=== PATIENT | female | born 1945 | race Caucasian/White ===

== ENCOUNTER 2017-01-03 11:30 | Inpatient (IN) | payer MEDICARE ==
--- NOTE | ~2017-01-03 | HP ---
History And Physical [facility] [address] [place]. [address] NAME: MARY CARMEN MARTINS : [birth year] STATUS : ADM IN [facility]#: [id number] AGE: 71 ADM/REG DATE : 01/03/17 MR#: [id number] REPORT SERV DATE: 01/03/17 DICTATED BY: BENJAMIN ALVARES DATE: 01/03/17 REPORT STATUS : Draft TRANSCRIBED BY: MODL DATE: 01/03/17 DATE OF ADMISSION: 01/03/2017 CHIEF COMPLAINT: Sent by office for labs. HISTORY OF PRESENT ILLNESS: Ms. Martins is a 71-year-old white female who has a history of advanced chronic kidney disease. She apparently was on dialysis from 2011 until approximately 2013 through a right upper arm AV graft. Because of infection, her graft has been removed, and she recovered renal function and has been off dialysis for the last four to five years. Reviewing available records shows that her creatinine was 2.5 in 07/2015 and 3.2 in 06/2016. Creatinine was 3.1 in 07/2016. However, when she came to the office on 12/19, creatinine was up to 6.2. She was sent back to the office today for followup, was found to have creatinine of 9.3 with a GFR 4 mL/minute. Her urine protein creatinine was 26.01, phosphorus 8.6, albumin 2.9. Because of recent uremic symptoms, she was sent to the [facility] Emergency Room for admission and initiation of chronic dialysis. PAST MEDICAL HISTORY: 1. CKD, stage 5, as per HPI. Previously dialysis dependent. 2. Anemia. 3. Nephrotic range proteinuria. 4. Hypertension. 5. Bilateral asymptomatic carotid artery stenosis. 6. Left renal artery stent, 06/2012. 7. 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 MEDICATIONS ON ADMISSION: Amlodipine 10 mg q.a.m., 5 mg q.p.m., Coreg 12.5 mg b.i.d., Colace, iron, losartan 50 mg b.i.d., sodium bicarb 650 mg b.i.d. FAMILY HISTORY: No ESRD. SOCIAL HISTORY: Chronic half pack per day smoker. She is recently with her passing away on 11/27. She is retired and lives in [place], [place]. REVIEW OF SYSTEMS: Significant for recent nausea, loss of appetite, loss of taste for food, weight loss, fatigue, and edema. PHYSICAL EXAMINATION: VITAL SIGNS: Temperature 97.9, pulse 71, respirations 20, blood pressure 166/82, 98% saturation on room air. GENERAL: She is a chronically ill-appearing, white female. Awake, alert, oriented, and cooperative with the exam. She is in no distress sitting in her hospital bed accompanied by her supportive daughter. HEENT: Sclerae without icterus. Conjunctivae not injected. Oropharynx is clear. History And Physical [address] [address] NAME: MARY CARMEN MARTINS : [birth year] STATUS : ADM IN [facility]#: [id number] AGE: 71 ADM/REG DATE : 01/03/17 MR#: [id number] REPORT SERV DATE: 01/03/17 DICTATED BY: BENJAMIN ALVARES DATE: 01/03/17 REPORT STATUS : Draft TRANSCRIBED BY: JOSE RAUL DATE: 01/03/17 LUNGS: She has bilateral rhonchi without dyspnea or tachypnea on room air. HEART: Regular rate and rhythm. No rub. ABDOMEN: Soft, nontender, nondistended. Bowel sounds present throughout. EXTREMITIES: 2+ pitting bilateral lower extremity and upper extremity edema. Right upper extremity has a bruise, old right upper arm graft has been removed. SKIN: No rash. MUSCULOSKELETAL: No active tenosynovitis or gout. PSYCH: Mood and affect are appropriate. LABORATORY DATA: Sodium 140, potassium 4.1, bicarb 18, anion gap 13, BUN 66, creatinine 9.7, GFR less than 5 mL/minute, calcium 7.7, albumin 2.0, phosphorus 8.6. White count 13,900, hemoglobin 10.7, platelets 264,000. INR 1.2. Chest x-ray, no active infiltrates or disease. ASSESSMENT/PLAN: Ms. Martins has chronic kidney disease that is now advanced to end-stage renal disease associated with uremic symptoms, anemia, nephrotic range proteinuria with hypoalbuminemia and edema, hyperphosphatemia, and acidosis. Admit to the Renal Service. Consult Dr. Harvey of Vascular for PermCath placement. We will defer whether or not to attempt a new permanent dialysis access on the left arm? Hold ARB. Case management to arrange outpatient dialysis. Hopefully can start dialysis in the hospital tomorrow and discharge early next week? Family updated, agree with treatment plans. NC/MODL Benjamin Alvares M.D. / [id number] CC: Pedro Lindsay M.D.
--- NOTE | ~2017-01-03 | DS ---
Discharge Summary [facility] [address] [place]. [address] NAME: MARY CARMEN YOST : 49 STATUS : DIS IN PAT#: [id number] AGE: 71 ADM/REG DATE : 01/03/17 MR#: [id number] REPORT SERV DATE: 01/17/17 DICTATED BY: LUC ALVARES DATE: 01/17/17 REPORT STATUS : Draft TRANSCRIBED BY: JOSE RAUL DATE: 01/17/17 Data Collection from hospitalization DISCHARGE DIAGNOSES: 1. Uremia. 2. New end-stage renal disease. 3. Nephrotic syndrome. 4. Hypertension. 5. Left renal artery stenosis-stent. 6. Anemia. 7. Tobacco use. CONSULTATIONS: None. PROCEDURES: Ultrasound and fluoroscopic-guided placement of tunneled hemodialysis catheter via the right internal jugular access 01/04/2017. DISCHARGE MEDICATIONS: Norvasc 10 mg daily, Tums 1000 mg with meals, Coreg 25 mg twice a day, docusate sodium 100 mg daily, ferrous sulfate 325 mg twice a day, Cozaar 50 mg twice a day, Habitrol 21 mg topically daily, Colon Health one capsule daily. CONDITION AT DISCHARGE: Stable. DISPOSITION: The patient was discharged home on a renal diet with activities as instructed. She would follow up for dialysis at [facility] 01/09/2017. HOSPITAL COURSE: This is a 71-year-old female who has a history of advanced chronic kidney disease. She apparently was on dialysis from 2011 until approximately 2013 via a right upper arm AV graft. Because of infection, her graft had been removed and she recovered renal function. She has been off dialysis over the last four to five years, creatinine level in 2014 was 2.5 and in 2015, it was 3.2. Creatinine was 3.1 in 07/2016. When she presented to the office on 12/19/2016, her creatinine level was 6.2. She was sent back to the office on the day of this admission, and creatinine was found to be 9.3. Urine protein and creatinine was 26.01 because of recent uremic symptoms, she was sent to the [facility] Emergency Room to be admitted and for initiation of chronic dialysis. She was admitted to the hospital at this time for further evaluation and treatment. Upon admission, INR level was 1.2. White count was 13,900. ARB was held. We hoped we could start dialysis the following day. The following day, she had pain control, she had no complaints of abdominal pain, she did have some edema. White count was 13.9. On 01/05/2017, hemodialysis therapy was again performed. She had no dyspnea. ARB was restarted. Supportive care continued. On 01/06/2017, she was alert and cooperative. She had undergone ultrasound and fluoroscopic guided placement of a tunneled hemodialysis catheter via the right internal jugular access on 01/04/2017. She continued to do well and had no complaints. She had no focal deficits. She had no edema. Hemodialysis therapy continued. Discharge planning was performed. Discharge Summary [place] [id number] [place]. [address] NAME: MARY CARMEN YOST : [birth year] STATUS : DIS IN PAT#: [id number] AGE: 71 ADM/REG DATE : 01/03/17 MR#: [id number] REPORT SERV DATE: 01/17/17 DICTATED BY: LUC ALVARES DATE: 01/17/17 REPORT STATUS : Draft TRANSCRIBED BY: JOSE RAUL DATE: 01/17/17 On 01/08/2017, there was no nausea, vomiting, or diarrhea. She was tolerating hemodialysis well. Discharge instructions were given. Plans were going to be made to have a fistula placed as an outpatient at a later date. Due to her improved and stable condition, she was discharged home with the above-stated instructions. Information collected by: Erlinda Chris I submit the above information as my discharge summary. STEFAN/JOSE RAUL Luc Alvares M.D. / [id number] CC: Pedro Lindsay M.D.
[2017-01-03 10:46] LABS: BASOPHILS 0.2 %; BASOPHILS ABSOLUTE 0.03 10/3/uL (0.0-0.16); EOSINOPHILS 7.5 %; EOSINOPHILS ABSOLUTE 1.05 10/3/uL (0.0-0.53); HEMATOCRIT 30.8 % (36.0-48.0); HEMOGLOBIN 10.7 g/dL (12.0-16.0); IMMATURE GRANULOCYTES 0.2 %; IMMATURE GRANULOCYTES ABSOLUTE 0.03 10/3/uL (0.0-0.11); LYMPHOCYTES 15.4 %; LYMPHOCYTES ABSOLUTE 2.14 10/3/uL (0.67-4.30); MANUAL DIFF NO %; MEAN CORPUS HGB CONC 34.7 g/dL (32.0-36.0); MEAN CORPUSCULAR HEMOGLOB 30.3 pg (26.0-34.0); MEAN CORPUSCULAR VOLUME 87.3 fL (80-100); MEAN PLATELET VOLUME 9.7 fL (9.2-13.0); MONOCYTES 6.5 %; NEUTROPHILS 70.2 %; NEUTROPHILS ABSOLUTE 9.76 10/3/uL (2.02-8.40); PLATELET COUNT 264 10/3/uL (150-400); RBC DISTRIBUTION WIDTH 15.7 % (12.0-16.0); RED CELL COUNT 3.53 10/6/uL (4.0-5.6); WHITE BLOOD CELLS 13.9 10/3/uL (4.5-10.5)
[2017-01-03 10:54] LABS: INTERNATIONAL NORMAL RATI 1.2 UNITS (-); PROTIME (NOT ORD) 14.6 SEC (12.0-14.5)
[2017-01-03 11:01] LABS: A/G RATIO 0.4 (0.7-1.9); ALKALINE PHOSPHATASE 117 U/L (45-117); BUN (BLOOD UREA NITROGEN) 66 MG/DL (6-23); CALCIUM, SERUM 7.7 MG/DL (8.5-10.4); CHLORIDE, SERUM 109 MMOL/L (96-112); CO2 (CARBON DIOXIDE) 18 MMOL/L (24-34); CREATININE 9.69 MG/DL (0.55-1.02); GFR AFRICAN AMERICAN 4 ML/MIN (>=60); GFR NON AFRICAN AMERICAN 4 ML/MIN (>=60); GLOBULIN 4.8 G/DL (2.5-4.1); GLUCOSE, SERUM 88 MG/DL (60-99); POTASSIUM, SERUM 4.1 MMOL/L (3.5-5.3); SGOT(AST) 10 U/L (5-40); SGPT(ALT) 11 U/L (5-65); SODIUM, SERUM 140 MMOL/L (135-148); TOTAL BILIRUBIN 0.2 MG/DL (0-1.2); TOTAL PROTEIN 6.8 G/DL (6.0-8.5)
[2017-01-03] MEDS ORDERED: NORV10 PO (11:58)
[2017-01-03] MEDS ORDERED: NORV5 PO (11:58)
[2017-01-03] MEDS ORDERED: SODBICAR10 PO (11:59)
[2017-01-03] MEDS ORDERED: D.O.S.100 MG PO (11:59)
[2017-01-03] MEDS ORDERED: COZ50 PO (11:59)
[2017-01-03] MEDS ORDERED: COREG12 PO (11:59)
[2017-01-03] MEDS ORDERED: FERROUS SULF325 M1 PO (11:59)
[2017-01-03] MEDS ORDERED: COLON HEALTH PO (12:00)
[2017-01-04 10:00] LABS: HEPATITIS C ANTIBODY NON-REACTIVE (NON-REACT)
[2017-01-04 10:01] LABS: HEPATITIS B CORE AB IGM NON-REACTIVE (NON-REAC); HIV COMBO NON-REACTIVE (NON REAC)
[2017-01-04 10:02] LABS: HEP A ANTIBODY IGM NON-REACTIVE (NON-REACT)
[2017-01-04 10:14] LABS: HEPATITIS B SURFACE ANTIGEN NON-REACTIVE (NON-REACT)
[2017-01-04 14:50] LABS: BASOPHILS 0.2 %; BASOPHILS ABSOLUTE 0.02 10/3/uL (0.0-0.16); EOSINOPHILS 8.8 %; EOSINOPHILS ABSOLUTE 0.75 10/3/uL (0.0-0.53); IMMATURE GRANULOCYTES 0.2 %; IMMATURE GRANULOCYTES ABSOLUTE 0.02 10/3/uL (0.0-0.11); LYMPHOCYTES 26.6 %; LYMPHOCYTES ABSOLUTE 2.27 10/3/uL (0.67-4.30); MEAN CORPUS HGB CONC 35.2 g/dL (32.0-36.0); MEAN CORPUSCULAR HEMOGLOB 30.6 pg (26.0-34.0); MEAN CORPUSCULAR VOLUME 87.1 fL (80-100); MEAN PLATELET VOLUME 9.7 fL (9.2-13.0); MONOCYTES 7.7 %; MONOCYTES ABSOLUTE 0.66 10/3/uL (0.21-1.20); NEUTROPHILS 56.5 %; NEUTROPHILS ABSOLUTE 4.81 10/3/uL (2.02-8.40); PLATELET COUNT 203 10/3/uL (150-400); RBC DISTRIBUTION WIDTH 15.5 % (12.0-16.0); WHITE BLOOD CELLS 8.5 10/3/uL (4.5-10.5)
[2017-01-04 14:51] LABS: HEMATOCRIT 23.6 % (36.0-48.0); HEMOGLOBIN 8.3 g/dL (12.0-16.0); MANUAL DIFF NO %; RED CELL COUNT 2.71 10/6/uL (4.0-5.6)
[2017-01-04 15:04] LABS: BUN (BLOOD UREA NITROGEN) 69 MG/DL (6-23); CALCIUM, SERUM 7.6 MG/DL (8.5-10.4); CHLORIDE, SERUM 112 MMOL/L (96-112); CO2 (CARBON DIOXIDE) 18 MMOL/L (24-34); GFR AFRICAN AMERICAN 4 ML/MIN (>=60); GFR NON AFRICAN AMERICAN 4 ML/MIN (>=60); POTASSIUM, SERUM 3.6 MMOL/L (3.5-5.3); SODIUM, SERUM 143 MMOL/L (135-148)
[2017-01-04 15:08] LABS: ALBUMIN 1.4 G/DL (3.5-5.0); GLUCOSE, SERUM 158 MG/DL (60-99); PHOSPHORUS, SERUM 7.9 MG/DL (2.5-4.5)
[2017-01-05 09:03] LABS: BASOPHILS 0.3 %; BASOPHILS ABSOLUTE 0.03 10/3/uL (0.0-0.16); EOSINOPHILS 7.9 %; EOSINOPHILS ABSOLUTE 0.77 10/3/uL (0.0-0.53); HEMATOCRIT 25.4 % (36.0-48.0); HEMOGLOBIN 8.9 g/dL (12.0-16.0); IMMATURE GRANULOCYTES 0.1 %; IMMATURE GRANULOCYTES ABSOLUTE 0.01 10/3/uL (0.0-0.11); LYMPHOCYTES 21.9 %; LYMPHOCYTES ABSOLUTE 2.12 10/3/uL (0.67-4.30); MEAN CORPUSCULAR HEMOGLOB 30.5 pg (26.0-34.0); MEAN PLATELET VOLUME 9.4 fL (9.2-13.0); MONOCYTES 8.7 %; MONOCYTES ABSOLUTE 0.84 10/3/uL (0.21-1.20); NEUTROPHILS 61.1 %; NEUTROPHILS ABSOLUTE 5.92 10/3/uL (2.02-8.40); PLATELET COUNT 209 10/3/uL (150-400); RBC DISTRIBUTION WIDTH 15.3 % (12.0-16.0); RED CELL COUNT 2.92 10/6/uL (4.0-5.6); WHITE BLOOD CELLS 9.7 10/3/uL (4.5-10.5)
[2017-01-05 09:04] LABS: MANUAL DIFF NO %
[2017-01-05 09:21] LABS: CALCIUM, SERUM 7.6 MG/DL (8.5-10.4); CHLORIDE, SERUM 110 MMOL/L (96-112); POTASSIUM, SERUM 3.7 MMOL/L (3.5-5.3); SODIUM, SERUM 140 MMOL/L (135-148)
[2017-01-05 09:23] LABS: BUN (BLOOD UREA NITROGEN) 46 MG/DL (6-23); CO2 (CARBON DIOXIDE) 24 MMOL/L (24-34); CREATININE 7.17 MG/DL (0.55-1.02); GFR AFRICAN AMERICAN 6 ML/MIN (>=60); GFR NON AFRICAN AMERICAN 5 ML/MIN (>=60); GLUCOSE, SERUM 90 MG/DL (60-99); PHOSPHORUS, SERUM 6.5 MG/DL (2.5-4.5)
[2017-01-05 09:24] LABS: ALBUMIN 1.8 G/DL (3.5-5.0)
[2017-01-06 07:38] LABS: ALBUMIN 2.2 G/DL (3.5-5.0); BUN (BLOOD UREA NITROGEN) 28 MG/DL (6-23); CHLORIDE, SERUM 105 MMOL/L (96-112); CO2 (CARBON DIOXIDE) 25 MMOL/L (24-34); CREATININE 5.62 MG/DL (0.55-1.02); GFR AFRICAN AMERICAN 8 ML/MIN (>=60); GFR NON AFRICAN AMERICAN 7 ML/MIN (>=60); GLUCOSE, SERUM 86 MG/DL (60-99); PHOSPHORUS, SERUM 4.5 MG/DL (2.5-4.5); POTASSIUM, SERUM 3.7 MMOL/L (3.5-5.3); SODIUM, SERUM 137 MMOL/L (135-148)
[2017-01-07 14:06] LABS: BASOPHILS 0.3 %; BASOPHILS ABSOLUTE 0.03 10/3/uL (0.0-0.16); EOSINOPHILS 8.2 %; EOSINOPHILS ABSOLUTE 0.94 10/3/uL (0.0-0.53); HEMATOCRIT 24.9 % (36.0-48.0); HEMOGLOBIN 8.5 g/dL (12.0-16.0); IMMATURE GRANULOCYTES 0.3 %; IMMATURE GRANULOCYTES ABSOLUTE 0.03 10/3/uL (0.0-0.11); LYMPHOCYTES 24.8 %; LYMPHOCYTES ABSOLUTE 2.84 10/3/uL (0.67-4.30); MEAN CORPUS HGB CONC 34.1 g/dL (32.0-36.0); MONOCYTES 7.9 %; MONOCYTES ABSOLUTE 0.91 10/3/uL (0.21-1.20); NEUTROPHILS 58.5 %; NEUTROPHILS ABSOLUTE 6.71 10/3/uL (2.02-8.40); PLATELET COUNT 207 10/3/uL (150-400); RBC DISTRIBUTION WIDTH 15.1 % (12.0-16.0); RED CELL COUNT 2.83 10/6/uL (4.0-5.6); WHITE BLOOD CELLS 11.5 10/3/uL (4.5-10.5)
[2017-01-07 14:07] LABS: MANUAL DIFF NO %
[2017-01-07 14:30] LABS: BUN (BLOOD UREA NITROGEN) 45 MG/DL (6-23); CALCIUM, SERUM 8.2 MG/DL (8.5-10.4); CHLORIDE, SERUM 103 MMOL/L (96-112); CO2 (CARBON DIOXIDE) 25 MMOL/L (24-34); CREATININE 7.49 MG/DL (0.55-1.02); GFR AFRICAN AMERICAN 6 ML/MIN (>=60); GFR NON AFRICAN AMERICAN 5 ML/MIN (>=60); GLUCOSE, SERUM 122 MG/DL (60-99); PHOSPHORUS, SERUM 5.6 MG/DL (2.5-4.5); POTASSIUM, SERUM 3.9 MMOL/L (3.5-5.3); SODIUM, SERUM 137 MMOL/L (135-148)
[2017-01-08] MEDS ORDERED: TUMSROLL PO (11:01)
[2017-01-08] MEDS ORDERED: HABIT21 TOP (11:02)
== END 2017-01-08 13:17 | disposition home or self-care (01) | DRG 682 ==
LOC: ER 11:30 → 2SO 12:29
PROVIDERS: Emergency Medicine; Internal Medicine Nephrology; Registered Nurse
PROC: 05HM33Z Insertion of Infusion Device into Right Internal Jugular Vein, Percutaneous Approach (ICD-10-PCS; principal; 2017-01-03)
PROC: B5131ZA Fluoroscopy of Right Jugular Veins using Low Osmolar Contrast, Guidance (ICD-10-PCS; 2017-01-03)
DX: I12.0 Hypertensive chronic kidney disease with stage 5 chronic kidney disease or end stage renal disease (principal); N18.6 End stage renal disease; E87.2 Acidosis; D64.9 Anemia, unspecified; I65.23 Occlusion and stenosis of bilateral carotid arteries; F17.210 Nicotine dependence, cigarettes, uncomplicated; E88.09 Other disorders of plasma-protein metabolism, not elsewhere classified; E83.39 Other disorders of phosphorus metabolism; Z99.2 Dependence on renal dialysis; Z86.73 Personal history of transient ischemic attack (TIA), and cerebral infarction without residual deficits
CPT/HCPCS: 36558; 71010; 76937; 77001; 80053; 80069; 80074; 83735; 85025; 85610; 87389; 93005; 99152; 99153; 99285; A9270-GY; C1750; C1769; G0257; J2250; J3010; P9047